=== PATIENT | male | born 1990 | race Caucasian/White ===

== ENCOUNTER 2020-01-11 16:04 | Emergency (ER) | payer SELFPAY ==
[~2020-01-11] VITALS: Ht 180.3 cm; Wt 120.7 kg
[2020-01-11 16:05] VITALS: BP 120/75
--- NOTE | 2020-01-11 16:12 | NUR ---
pt amb to bed 6
--- NOTE | 2020-01-11 16:20 | NUR ---
PT C/O RT HAND PAIN. PT STATES PAIN IN RT STARTED 2MONTHS AGO. PT DOES NOT KNOW OR REMEMBER IF HE INJURIED HIS RT HAND. NO SWELLING. NO REDNESS. NO VISIBLE DEFORMITY. PAIN OCCURS DURING GRIPPING OR HAND WORK. PT DESCRIBES TIGHTNESS AND SHARP PAIN WITH MOVEMENT OF RT HAND NO PMHX NKA, NKDA
--- NOTE | 2020-01-11 16:44 | NUR ---
PT SITTING IN CHAIR. PT IS AWAKE. R/R EVEN AND UNLABORED.
--- NOTE | 2020-01-11 17:05 | NUR ---
XRAY AT BEDSIDE
--- NOTE | 2020-01-11 17:48 | NUR ---
APPLIED VELCRO THUMB SPICA SPLINT TO RIGHT HAND WITHOUT ANY ISSUES
[2020-01-11 18:05] VITALS: BP 120/75
--- NOTE | 2020-01-11 18:05 | NUR ---
Patient discharged with v/s stable. Written and verbal after care instructions given and explained. Patient verbalized understanding. Ambulatory with steady gait. All questions addressed prior to discharge. Advised to follow up with PMD.
== END 2020-01-11 18:05 | disposition home or self-care (01) ==
LOC: MED 16:04
DX: S62.630A Displaced fracture of distal phalanx of right index finger, initial encounter for closed fracture (principal); X50.9XXA Other and unspecified overexertion or strenuous movements or postures, initial encounter; Y93.89 Activity, other specified; Y92.89 Other specified places as the place of occurrence of the external cause; Y99.8 Other external cause status
CPT/HCPCS: 29130; 73130; 99283; Q0092

== ENCOUNTER 2020-11-09 04:55 | Emergency (ER) | payer SELFPAY ==
[~2020-11-09] VITALS: Ht 180.3 cm; Wt 122.5 kg
[2020-11-09 05:26] VITALS: BP 128/81
--- NOTE | 2020-11-09 05:30 | NUR ---
29 YO M BIB SELF FOR C/O ITCHINESS SWELLING AFTER EATING SHRIMP. PT STATES, " I HAVE ALLERGIES TO SHRIMP WHERE MY SKIN ITCHES AND MY THROAT CLOSES UP." PT DENIES SOB/CP. PT TOOK X2 BENADRYL X2 HOUR PRIOR TO COMING TO ED. SKIN PINK DRY INTACT @ THIS TIME. VSS. HX: DENIES RX: BENADRYL AX: SHRIMP
[2020-11-09] MEDS ORDERED: methylPREDNISolone SS 125 MG in WATER STERILE 2 ML IV ONE (05:55)
[2020-11-09] MEDS ORDERED: NACL 0.9% 1,000 ML IV ONE (05:55)
[2020-11-09] MEDS ORDERED: FAMOTIDINE 20 MG/2 ML VIAL IVP ONE (05:55)
[2020-11-09] MEDS ORDERED: WATER STERILE 10 ML MC ONE (06:04)
[2020-11-09] MEDS ORDERED: methylPREDNISolone SS 125 MG/2 ML VIAL ONE (06:04)
--- NOTE | 2020-11-09 06:30 | NUR ---
PT HAS EYES CLOSED; FLACC 0. AROUSABLE NO ACUTE DISTRESS NOTED. VSS.
--- NOTE | 2020-11-09 07:22 | NUR ---
REPORT GIVEN TO DAY SHIFT FOR CONTINUITY OF CARE
[2020-11-09] MEDS ORDERED: EPIN1KIT32 IM (08:08)
[2020-11-09] MEDS ORDERED: PRED50TA3 PO (08:09)
[2020-11-09 08:33] VITALS: BP 106/68
--- NOTE | 2020-11-09 08:34 | NUR ---
Patient discharged with v/s stable. Written and verbal after care instructions about anaphylactic reaction given and explained. Patient alert, oriented and verbalized understanding of instructions. Ambulatory with steady gait. All questions addressed prior to discharge. ID band removed. Patient advised to follow up with PMD. Rx of prednisone, epinephrine given. Patient educated on indication of medication including possible reaction and side effects. Opportunity to ask questions provided and answered.
== END 2020-11-09 08:34 | disposition home or self-care (01) ==
LOC: MED 04:55
DX: L27.2 Dermatitis due to ingested food (principal)
CPT/HCPCS: 96374; 96375; 99284; J2930; J3490; J7030; 96365